=== PATIENT | female | born 1980 ===

== ENCOUNTER 2019-04-16 09:02 | Inpatient (IN) | payer OTHER ==
[~2019-04-16] VITALS: Ht 175.3 cm; Wt 86.2 kg
[2019-04-16] MEDS ORDERED: RIFA550T2 (09:40)
[2019-04-16] MEDS ORDERED: LACT10SY (09:40)
[2019-04-16] MEDS ORDERED: Potassium Chlo10 ME2 (09:41)
[2019-04-16 09:42] LABS: Hematocrit 30.8 % (33.0-51.0); Hemoglobin 11.1 g/dL (11.5-16.0); LYMPHOCYTES ABSOLUTE AUTO 0.77 K/mm3 (0.84-5.20); LYMPHOCYTES PERCENT AUTO 6 % (21-46); MONOCYTES ABSOLUTE AUTO 1.53 K/mm3 (0.16-1.47); MONOCYTES PERCENT AUTO 13 % (4-13); Mean Corpuscular HGB 36.6 pg (26.0-34.0); Mean Corpuscular Volume 102 fL (80-100); RDW Coefficient Variation 15.1 % (11.7-14.2); RDW Standard Deviation 55.5 fL (35.1-46.3); Red Blood Cell Count 3.03 M/mm3 (3.80-5.20); White Blood Cell Count 12.25 K/mm3 (4.00-11.30)
[2019-04-16 09:44] LABS: BASOPHILS ABSOLUTE AUTO 0.02 K/mm3 (0.00-0.23); BASOPHILS PERCENT AUTO 0 % (0-2); EOSINOPHILS ABSOLUTE AUTO 0.07 K/mm3 (0.00-0.68); EOSINOPHILS PERCENT AUTO 1 % (0-6); IMMATURE GRAN PERCENT AUTO 9 % (0-1); NEUTROPHILS ABSOLUTE AUTO 8.76 K/mm3 (1.96-9.15); NEUTROPHILS PERCENT AUTO 71 % (41-73); Platelet Count 50 K/mm3 (150-400)
[2019-04-16 10:02] LABS: Albumin/Globulin Ratio 0.6 (0.8-1.8); Bilirubin, Total 14.1 mg/dL (0.1-1.0); Bun/Creatinine Ratio 10.6 (12.0-20.0); Calcium, Blood 8.4 mg/dL (8.5-10.1); Creatinine, Blood 1.89 mg/dL (0.40-1.00); Potassium, Blood 2.7 mmol/L (3.5-5.5)
[2019-04-16 10:03] LABS: BAND PERCENT MAN 17 % (0-8); BASOPHILS PERCENT MAN 0 % (0-2); EOSINOPHILS ABSOLUTE MAN 0.12 K/mm3 (0.00-0.68); EOSINOPHILS PERCENT MAN 1 % (0-6); LYMPHOCYTES ABSOLUTE MAN 0.49 K/mm3 (0.84-5.20); LYMPHOCYTES PERCENT MAN 4 % (21-46); METAMYELOCYTE ABSOLUTE MAN 0.12 K/mm3 (0.00-0.00); METAMYELOCYTE PERCENT MAN 1 % (0-0); MONOCYTES ABSOLUTE MAN 1.47 K/mm3 (0.16-1.47); MONOCYTES PERCENT MAN 12 % (4-13); NEUTROPHILS ABSOLUTE MAN 10.04 K/mm3 (1.96-9.15); SEG NEUTROPHILS PERCENT MAN 65 % (41-73); TOTAL CELLS COUNTED 100
[2019-04-16 12:16] LABS: International Normalized Ratio 2.84; Prothrombin Time Results 27.4 Sec (9.7-11.5)
[2019-04-16 12:20] LABS: Phosphorus, Blood 2.6 mg/dL (2.5-4.9)
[2019-04-16 12:58] LABS: Base Excess Venous -3.9 mmol/L; Bicarbonate Venous 21.2 mmol/L (24.0-30.0); PCO2 Venous 36.7 mmHg (38-42); PO2 Venous 46.8 mmHg (38-42); pH Blood Venous 7.37 (7.34-7.37)
--- NOTE | 2019-04-16 14:40 | NUR ---
ADMIT NOTE PT REPORT RECEIVED. PT ARRIVED VIA GURNEY ACCOMPANIED BY RN. PT ALERT. SLIDE TO NEW BED WITH SLIDER SHEET AND 4 ASSIST. PT TOELRATED WELL. RECTAL TUBE IN PLACE. DRAINING DARK, BROWN LIQUID. #1 K RIDER INFUSING, IVF INFUSING. PT DENIED PAIN OR DISCOMFORT. SHE ASKED FOR POPCICLE. CONTINUE POT.
[2019-04-16 16:10] LABS: Adenovirus F 40/41 Not Detected (NOT DETECT); Astrovirus Not Detected (NOT DETECT); Campylobacter Sp Not Detected (NOT DETECT); Cryptosporidium Not Detected (NOT DETECT); Cyclospora Cayetanensis Not Detected (NOT DETECT); E. Coli O157 Not Detected (NOT DETECT); Entamoeba Histolytica Not Detected (NOT DETECT); Enteroaggregative E. coli-EAEC Not Detected (NOT DETECT); Enteropathogenic E. coli-EPEC Not Detected (NOT DETECT); Enterotoxigenic E. coli-ETEC Not Detected (NOT DETECT); Giardia Lamblia Not Detected (NOT DETECT); Norovirus GI/GII Not Detected (NOT DETECT); Plesiomonas Shigelloides Not Detected (NOT DETECT); Rotavirus A Not Detected (NOT DETECT); Salmonella Sp Not Detected (NOT DETECT); Sapovirus Not Detected (NOT DETECT); Shiga Toxin-prod E. coli-STEC Not Detected (NOT DETECT); Shigella/Enteroin E. coli-EIEC Not Detected (NOT DETECT); Vibrio Cholerae Not Detected (NOT DETECT); Vibrio Sp Not Detected (NOT DETECT); Yersinia Enterocolitica Not Detected (NOT DETECT)
--- NOTE | 2019-04-16 16:25 | NUR ---
UPDATE CALLED DR SALAS TO ASK ABOUT ANTIBIOTIC AND UPDATE ON BP. REPORTED THAT PT HAD NOT RECEIVED ROCEPHIN IN ER. IT WAS CANCELLED BEFORE GIVING. ORDER RECEIVED FOR ROCEPHIN 2 GRAM IV DAILY. THEN REPORTED BP TREND AND THAT WE WERE FINISHING THE 4TH LITER ON NS. DR SALAS WANTED NS LITER #5 GIVEN BOLUS. REPORTED THAT PT HAS NOT PRODUCED URINE YET. STOOL SAMPLE SENT PER ORDER. CONTINUE POT.
[2019-04-16 16:36] LABS: Hematocrit 27.1 % (33.0-51.0); Hemoglobin 9.6 g/dL (11.5-16.0)
[2019-04-16 16:47] LABS: Albumin, Blood 2.5 g/dL (3.4-5.0); Albumin/Globulin Ratio 0.6 (0.8-1.8); Bilirubin, Total 11.5 mg/dL (0.1-1.0); Bun/Creatinine Ratio 14.4 (12.0-20.0); Calcium, Blood 7.2 mg/dL (8.5-10.1); Creatinine, Blood 1.6 mg/dL (0.40-1.00); Globulin, Blood 4.1 g/dL (2.2-4.0); Potassium, Blood 2.9 mmol/L (3.5-5.5); Total Protein, Blood 6.6 g/dL (6.4-8.2)
--- NOTE | 2019-04-16 17:32 | NUR ---
LABS CALLED TO [facility] TO REPORT LAB RESULTS. CDIFF, POTASSIUM. ORDERS RECEIVED. STILL NO URINE OUT PT. CONTINUE FLUIDS. CONTINUE POT.
[2019-04-17 00:42] LABS: Source, Urine Catheter
[2019-04-17 00:44] LABS: Blood, Urine 5+ (Neg); Glucose Qualitative, Urine Neg (Neg); Ketones, Urine 1+ (Neg); Leukocyte Esterase, Urine 1+ (Neg); Nitrite, Urine Pos (Neg); Protein, Urine 2+ (Neg); Urobilinogen, Urine 1+ (Normal)
[2019-04-17 00:55] LABS: U Amphetamine Screen Not Detected; U Barbituate Screen Not Detected; U Benzodiazapine Screen DETECTED; U Buprenorphine Screen Not Detected; U Cannabinoids Screen Not Detected; U Cocaine Screen Not Detected; U Methadone Screen Not Detected; U Methamphetamine Screen Not Detected; U Opiates Screen Not Detected; U Oxycodone Screen Not Detected; U Phencyclidine Screen Not Detected; U Propoxyphene Screen Not Detected
[2019-04-17 00:55] LABS: Appearance, Urine Hazy (Clear); Bilirubin, Urine 2+ (Neg); Color, Urine Amber (P-Yellow)
[2019-04-17 00:56] LABS: Bacteria Mod /hpf; Red Blood Cells, Urine 50-100 /hpf (0-2); Squamous Epithelial Cells Few /hpf (Few)
[2019-04-17 04:01] LABS: Hemoglobin 9.4 g/dL (11.5-16.0); Mean Corpuscular HGB 36.7 pg (26.0-34.0); Mean Corpuscular HGB Conc 34.8 g/dL (31.5-36.5); Mean Platelet Volume 10.6 fL (9.1-12.4); RDW Coefficient Variation 14.9 % (11.7-14.2); RDW Standard Deviation 58.3 fL (35.1-46.3); Red Blood Cell Count 2.56 M/mm3 (3.80-5.20); White Blood Cell Count 9.38 K/mm3 (4.00-11.30)
[2019-04-17 04:03] LABS: Mean Corpuscular Volume 106 fL (80-100)
[2019-04-17 04:04] LABS: Platelet Count 42 K/mm3 (150-400)
[2019-04-17 04:17] LABS: Albumin, Blood 2.5 g/dL (3.4-5.0); Albumin/Globulin Ratio 0.6 (0.8-1.8); Bilirubin, Total 9.8 mg/dL (0.1-1.0); Bun/Creatinine Ratio 20.9 (12.0-20.0); Calcium, Blood 7.3 mg/dL (8.5-10.1); Creatinine, Blood 1.15 mg/dL (0.40-1.00); Globulin, Blood 4.4 g/dL (2.2-4.0); Magnesium, Blood 1.5 mg/dL (1.6-2.4); Potassium, Blood 2.9 mmol/L (3.5-5.5); Total Protein, Blood 6.9 g/dL (6.4-8.2)
[2019-04-17 04:34] LABS: BAND PERCENT MAN 29 % (0-8); BASOPHILS PERCENT MAN 0 % (0-2); EOSINOPHILS ABSOLUTE MAN 0.46 K/mm3 (0.00-0.68); EOSINOPHILS PERCENT MAN 5 % (0-6); LYMPHOCYTES ABSOLUTE MAN 0.75 K/mm3 (0.84-5.20); LYMPHOCYTES PERCENT MAN 8 % (21-46); METAMYELOCYTE ABSOLUTE MAN 0.09 K/mm3 (0.00-0.00); METAMYELOCYTE PERCENT MAN 1 % (0-0); MONOCYTES ABSOLUTE MAN 0.93 K/mm3 (0.16-1.47); MONOCYTES PERCENT MAN 10 % (4-13); MYELOCYTE ABSOLUTE MAN 0.09 K/mm3 (0.00-0.00); MYELOCYTE PERCENT MAN 1 % (0-0); NEUTROPHILS ABSOLUTE MAN 7.03 K/mm3 (1.96-9.15); SEG NEUTROPHILS PERCENT MAN 46 % (41-73); TOTAL CELLS COUNTED 100
--- NOTE | 2019-04-17 07:32 | NUR ---
END OF SHIFT SUMMARY PT HAS BEEN ALERT AND ORIENTED T/O SHIFT, RESPONDING APPROPRIATELY. HAS BEEN INDEPENDENT TO BSC, STABLE GAIT. PT STARTED WITH RECTAL TUBE THIS SHIFT, THIS WAS ACCIDENTALLY PULLED OUT ON BSC, THIS WAS NOT REINSERTED PER PT REQUEST, PT HAS BEEN ABLE TO MAKE IT TO BSC WITH NO EVENTS. POST BOLUS OF NS, BP'S HAVE REAINED ABOVE 100 SYSTOLICALLY. FLUIDS REMAIN INFUSING @100MLS/HR NOW. UPON RECTAL TUBE EXUBATION, RED BLOOD IN BSC, THOUGHT TO HAVE BEEN OF GI ORIGIN R/T C DIFF. IT WAS LATER DISCOVERED THAT THIS WAS OF MENSES ORIGIN. TAMPONS PROVIDED TO PT. PT HAS USED MULTIPLE TAMPONS AND PULLED THE OLD ONES OUT. PT HAS TOLERATED LARGE AMOUNTS PO WATER AND A FEW POPSICLES. PT HAS SOME ABD PAIN, MED ORDER RECEIVED FROM PAMELA OSMAN. PT'S BM OUTPUT HAS DECREASED T/O THE NIGHT, PT HAD RECEIVED LACTULOSE PRE HOSPITAL BUT HAS NOT RECEIVED ANY SINCE ADMIT. PT FEBRILE AT TIMES, PROVIDED COOL RAGS, DUE TO KIDNEY/LIVER FUNCTION, TYLENOL NOT ABLE TO BE GIVEN. CIWAS REMAIN 0 - 1. PT HAS COMMUNICATED NEEDS TO THIS RN AND HAS USED CALL LIGHT APPROPRIATELY. REPORT GIVEN TO ONCOMING RN.
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
[2019-04-18 03:27] LABS: BASOPHILS ABSOLUTE AUTO 0.07 K/mm3 (0.00-0.23); BASOPHILS PERCENT AUTO 1 % (0-2); Hematocrit 25.5 % (33.0-51.0); Mean Corpuscular HGB Conc 35.3 g/dL (31.5-36.5); Mean Corpuscular Volume 105 fL (80-100); RDW Coefficient Variation 14.7 % (11.7-14.2); RDW Standard Deviation 57.2 fL (35.1-46.3); Red Blood Cell Count 2.43 M/mm3 (3.80-5.20)
[2019-04-18 03:28] LABS: EOSINOPHILS ABSOLUTE AUTO 0.38 K/mm3 (0.00-0.68); EOSINOPHILS PERCENT AUTO 4 % (0-6); IMMATURE GRAN ABSOLUTE AUTO 0.08 K/mm3 (0.00-0.10); IMMATURE GRAN PERCENT AUTO 1 % (0-1); LYMPHOCYTES ABSOLUTE AUTO 1.37 K/mm3 (0.84-5.20); LYMPHOCYTES PERCENT AUTO 16 % (21-46); MONOCYTES ABSOLUTE AUTO 0.86 K/mm3 (0.16-1.47); MONOCYTES PERCENT AUTO 10 % (4-13); NEUTROPHILS ABSOLUTE AUTO 5.94 K/mm3 (1.96-9.15); NEUTROPHILS PERCENT AUTO 68 % (41-73)
[2019-04-18 03:29] LABS: Platelet Count 47 K/mm3 (150-400)
[2019-04-18 03:38] LABS: International Normalized Ratio 2.05; Prothrombin Time Results 20.4 Sec (9.7-11.5)
[2019-04-18 03:44] LABS: Alanine Aminotransfer (ALT/SGP 28 U/L (12-78); Albumin, Blood 2.4 g/dL (3.4-5.0); Albumin/Globulin Ratio 0.6 (0.8-1.8); Alk Phos 146 U/L (50-136); Anion Gap 10 mmol/L (6-16); Aspartate Aminotrans (AST/SGOT 58 U/L (12-37); Blood Urea Nitrogen 10 mg/dL (8-24); Bun/Creatinine Ratio 13.7 (12.0-20.0); CO2, Blood 19 mmol/L (21-32); Calcium, Blood 7.7 mg/dL (8.5-10.1); Chloride, Blood 107 mmol/L (98-108); Creatinine, Blood 0.73 mg/dL (0.40-1.00); Globulin, Blood 4.3 g/dL (2.2-4.0); Glomerular Filtration Rate >60 (60-); Glucose, Blood 133 mg/dL (70-99); Magnesium, Blood 1.4 mg/dL (1.6-2.4); Potassium, Blood 2.8 mmol/L (3.5-5.5); Sodium, Blood 136 mmol/L (136-145); Total Protein, Blood 6.7 g/dL (6.4-8.2)
--- NOTE | 2019-04-18 06:38 | NUR ---
no s/sx of withdrawls, a+o, cooperative with staff, call light in reach, dressing applied to coccyx r/fall prior to being admitted, informed dr of low plt cnt and potassium level, entered resulting orders and treated as prescribed, pt showered, ns infusing at 100 with no s/sx of infection or infiltration, will continue to monitor and treat until bsr completed with day staff and pt, temp remained elevated but less than 100, possibly related to temp of room.
--- NOTE | 2019-04-18 10:42 | NUR ---
NOTE PT AWAKE AND ALERT. SHE HAS SEEN MENTAL HEALTH PROGRAM SPECIALIST AND TALKED ABOUT ALCOHOL REHAB. PT CONCERNED ABOUT NOT HAVING SELF CONTROL AND WHEN WE DISCHARGE HER SHE WILL WALK OUT AND GO RIGHT BACK TO [facility]. SHE ACCEPTED MY PRAKASH TO CONTACT AA STAFF TO ARRANGE A VISIT HERE. CAONTACTED JOLANTA MENESES AND REQUESTED A VISIT FOR PT. CONTINUE POT.
--- NOTE | 2019-04-18 15:09 | NUR ---
NOTE PT ALERT. SR. AMBULATED IN THE HALLWAY WITH SBA AND GAIT BELT. TOLERATED WELL. GAIT STEADY. VSS. CONTINUED LOOSE STOOL PER BSC. PT EATING REGULAR FOOD. SHE DENIES ABD. CRAMPING OR BLOATING. ABD. U/S DONE. DR SALAS CAME TO SEE PT. NEW ORDERS RECEIVED. PT HAS DENIED CONTINUED MENSTRAL FLOW. SHE HAS NOT USED ANY OF THE PADS SUPPLIED TO HER THIS MORNING. NO BLOODY TINGE TO URINE IN BSC. MEDICATED WITH FENTAYL X2 FOR PELVIC/CRAMPING DISCOMFORT CONTINUE POT.
--- NOTE | 2019-04-18 15:12 | NUR ---
COMPASS/ADAPT RENA POOL, CALLED TO ENQUIRE ABOUT PT. HE CONFIRMED THAT SHE NEEEDS TO COMPLETE THE ANTIBIOTIC TREATMENT BEFORE RETURNING FOR ALCOHOL TREATMENT. CONTINUE POT.
--- NOTE | 2019-04-18 17:00 | NUR ---
Spiritual Care inital note: Asked by RN to speak to pt about recovery from ETOH. She has been in several ETOH in-patient rehabs. She admits to leaving before treatment complete. She verbalizes that she wants to quit drinking. She also admits that she knows "this will kill me if I don't." However, she is not interested in following up with 12-step program/counseling after rehab complete. Educated Peace that most alcoholics need some form of continued support to live a sober life. She is manly worried about finding a place to live as she cannot return to family. Advised that discharge planning may provide some options.
[2019-04-19 03:52] LABS: BASOPHILS ABSOLUTE AUTO 0.06 K/mm3 (0.00-0.23); BASOPHILS PERCENT AUTO 1 % (0-2); Hematocrit 24.3 % (33.0-51.0); Hemoglobin 8.6 g/dL (11.5-16.0); LYMPHOCYTES PERCENT AUTO 22 % (21-46); MONOCYTES ABSOLUTE AUTO 1.07 K/mm3 (0.16-1.47); MONOCYTES PERCENT AUTO 15 % (4-13); Mean Corpuscular HGB 37.1 pg (26.0-34.0); Mean Corpuscular HGB Conc 35.4 g/dL (31.5-36.5); Mean Corpuscular Volume 105 fL (80-100); Mean Platelet Volume 10.5 fL (9.1-12.4); NRBC ABSOLUTE 0.02 K/mm3 (0.00-0.02); NRBC Auto 0.3 /100 WBC (0.0-0.2); RDW Coefficient Variation 14.5 % (11.7-14.2); RDW Standard Deviation 54.9 fL (35.1-46.3); Red Blood Cell Count 2.32 M/mm3 (3.80-5.20); White Blood Cell Count 6.97 K/mm3 (4.00-11.30)
[2019-04-19 03:54] LABS: EOSINOPHILS ABSOLUTE AUTO 0.44 K/mm3 (0.00-0.68); EOSINOPHILS PERCENT AUTO 6 % (0-6); IMMATURE GRAN ABSOLUTE AUTO 0.09 K/mm3 (0.00-0.10); IMMATURE GRAN PERCENT AUTO 1 % (0-1); NEUTROPHILS ABSOLUTE AUTO 3.81 K/mm3 (1.96-9.15); NEUTROPHILS PERCENT AUTO 55 % (41-73); Platelet Count 48 K/mm3 (150-400)
[2019-04-19 04:08] LABS: Alanine Aminotransfer (ALT/SGP 28 U/L (12-78); Albumin, Blood 2.2 g/dL (3.4-5.0); Albumin/Globulin Ratio 0.5 (0.8-1.8); Alk Phos 153 U/L (50-136); Anion Gap 9 mmol/L (6-16); Aspartate Aminotrans (AST/SGOT 58 U/L (12-37); Bilirubin, Total 5.3 mg/dL (0.1-1.0); Blood Urea Nitrogen 6 mg/dL (8-24); Bun/Creatinine Ratio 8.9 (12.0-20.0); CO2, Blood 21 mmol/L (21-32); Calcium, Blood 7.6 mg/dL (8.5-10.1); Chloride, Blood 106 mmol/L (98-108); Creatinine, Blood 0.67 mg/dL (0.40-1.00); Globulin, Blood 4.1 g/dL (2.2-4.0); Glomerular Filtration Rate >60 (60-); Glucose, Blood 92 mg/dL (70-99); Magnesium, Blood 1.2 mg/dL (1.6-2.4); Potassium, Blood 3.3 mmol/L (3.5-5.5); Sodium, Blood 136 mmol/L (136-145); Total Protein, Blood 6.3 g/dL (6.4-8.2)
[2019-04-19 04:13] LABS: BAND PERCENT MAN 3 % (0-8); BASOPHILS PERCENT MAN 0 % (0-2); EOSINOPHILS ABSOLUTE MAN 0.34 K/mm3 (0.00-0.68); EOSINOPHILS PERCENT MAN 5 % (0-6); LYMPHOCYTES ABSOLUTE MAN 0.83 K/mm3 (0.84-5.20); LYMPHOCYTES PERCENT MAN 12 % (21-46); MONOCYTES ABSOLUTE MAN 0.62 K/mm3 (0.16-1.47); MONOCYTES PERCENT MAN 9 % (4-13); NEUTROPHILS ABSOLUTE MAN 5.15 K/mm3 (1.96-9.15); SEG NEUTROPHILS PERCENT MAN 71 % (41-73); TOTAL CELLS COUNTED 100
--- NOTE | 2019-04-19 05:06 | NUR ---
clv noted, discussed with cn, value was better than yesterdays, so did not inform dr via phone
--- NOTE | 2019-04-19 07:23 | NUR ---
a+o, up on own in room, call light in reach, pain medication minimally effective, ns infusing with no s/sx of infection noted at site, thought someone laughed during report r/bruising, assured her that it was someone out side of the room who laughed, ciwa 0, bsr provided to pt and day staff
--- NOTE | 2019-04-19 19:25 | NUR ---
SHIFT SUMMARY PT A&Ox4. ANXIOUS AT TIMES. COOPERATIVE WITH CARE. PT RESTING IN BED DURING SHIFT. UP IND IN ROOM AND WALKING IN HALLS SEVERAL TIMES PER DAY. PT REPORTS ABD PAIN, MEDCIATED x2 WITH FENTNYL WITH POSITIVE RESULTS. PT DENIES SOB AND NAUSEA T/O SHIFT. PT RECEIVED POTASSIUM AND MAGNESIUM REPLACEMENTS DURING SHIFT. RECEIVING PO VANCO AND PROBIOTICS. VSS. NO OTHER ACUTE CHANGES NOTED DURING SHIFT. WILL CONTINUE TO MONITOR UNTIL REPORT GIVEN TO ONCOMING RN.
[2019-04-20 04:53] LABS: BASOPHILS ABSOLUTE AUTO 0.04 K/mm3 (0.00-0.23); BASOPHILS PERCENT AUTO 1 % (0-2); Hematocrit 19.2 % (33.0-51.0); LYMPHOCYTES ABSOLUTE AUTO 1.97 K/mm3 (0.84-5.20); LYMPHOCYTES PERCENT AUTO 24 % (21-46); MONOCYTES ABSOLUTE AUTO 1.56 K/mm3 (0.16-1.47); MONOCYTES PERCENT AUTO 19 % (4-13); Mean Corpuscular HGB 38.3 pg (26.0-34.0); Mean Corpuscular HGB Conc 36.5 g/dL (31.5-36.5); Mean Corpuscular Volume 105 fL (80-100); Mean Platelet Volume 10.9 fL (9.1-12.4); Platelet Count 61 K/mm3 (150-400); RDW Coefficient Variation 14.4 % (11.7-14.2); RDW Standard Deviation 54.9 fL (35.1-46.3); Red Blood Cell Count 1.83 M/mm3 (3.80-5.20); White Blood Cell Count 8.22 K/mm3 (4.00-11.30)
[2019-04-20 04:56] LABS: EOSINOPHILS ABSOLUTE AUTO 0.36 K/mm3 (0.00-0.68); EOSINOPHILS PERCENT AUTO 4 % (0-6); IMMATURE GRAN ABSOLUTE AUTO 0.16 K/mm3 (0.00-0.10); IMMATURE GRAN PERCENT AUTO 2 % (0-1); NEUTROPHILS ABSOLUTE AUTO 4.13 K/mm3 (1.96-9.15); NEUTROPHILS PERCENT AUTO 50 % (41-73)
[2019-04-20 05:10] LABS: Alanine Aminotransfer (ALT/SGP 26 U/L (12-78); Albumin, Blood 2.3 g/dL (3.4-5.0); Albumin/Globulin Ratio 0.5 (0.8-1.8); Alk Phos 135 U/L (50-136); Anion Gap 7 mmol/L (6-16); Aspartate Aminotrans (AST/SGOT 57 U/L (12-37); Bilirubin, Total 5.6 mg/dL (0.1-1.0); Blood Urea Nitrogen 6 mg/dL (8-24); Bun/Creatinine Ratio 9.6 (12.0-20.0); CO2, Blood 24 mmol/L (21-32); Calcium, Blood 7.9 mg/dL (8.5-10.1); Chloride, Blood 105 mmol/L (98-108); Creatinine, Blood 0.63 mg/dL (0.40-1.00); Globulin, Blood 4.3 g/dL (2.2-4.0); Glomerular Filtration Rate >60 (60-); Glucose, Blood 78 mg/dL (70-99); Magnesium, Blood 1.4 mg/dL (1.6-2.4); Potassium, Blood 3.6 mmol/L (3.5-5.5); Sodium, Blood 136 mmol/L (136-145); Total Protein, Blood 6.6 g/dL (6.4-8.2)
--- NOTE | 2019-04-20 06:14 | NUR ---
a+o, changed dressing for powerglide, tolerated procedure well, caps changed, call light in reach, saline locked rm air, only requested pain mediation twice, legs elevated, no s/sx of withdrawl, will continue to monitor and treat until bsr shared with day staff and pt
[2019-04-20 09:40] LABS: IMMATURE RETIC FRACTION 6.7 % (2.3-16.0); RETIC HGB EQUIVALENT 36.8 pg (28.20-36.60); RETICULOCYTE ABSOLUTE 0.0608 M/mm3 (0.0200-0.1100); RETICULOCYTE COUNT PERCENT 3.27 % (0.50-2.50)
--- NOTE | 2019-04-20 15:10 | NUR ---
PT TRANSFERING TO ROOM 310. PT A&Ox4. ANXIOUS AT TIMES. CALM AND COOPERATIVE WITH CARE. PT IND IN ROOM. PT REPROT ABD CRAMPING, MEDCIATED x1 WITH ULTRAM WITH POSITIVE RESULTS. PT DENIES SOB AND NAUSEA T/O SHIFT. PT RECEIVED IV MAGNESIUM. 1 UNIT PRBC, APPEARS TO HAVE TOLERATED WELL. VSS. NO OTHER ACUTE CHANGES NOTED. REPORT GIVEN TO AUDREY VOGEL ASSUMING CARE OF PT. PT LEFT ROOM ON FOOT WITH BELONGINGS AND EMELINA LYNNE TO ROOM 310.
--- NOTE | 2019-04-20 15:41 | NUR ---
PT ARRIVED TO THE UNIT WALKING. ORIENTATED TO ROOM. CALL LIGHT WITHIN REACH.
--- NOTE | 2019-04-21 04:35 | NUR ---
SHIFT SUMMARY: 39 Y/O FEMALE RESTED COMFORTABLY ALL SHIFT, DENIES PAIN OR NAUSEA, CIWA SCORE ZERO, EAGER TO POSSIBLE PLACEMENT TO REHAB UNIT FOR ETOH ABUSE, BED LOW POSITION WITH CALL LIGHT AT SIDE.
[2019-04-21 05:04] LABS: Hematocrit 26.3 % (33.0-51.0); Hemoglobin 9.2 g/dL (11.5-16.0)
[2019-04-21 05:35] LABS: Anion Gap 5 mmol/L (6-16); Blood Urea Nitrogen 5 mg/dL (8-24); Bun/Creatinine Ratio 8.9 (12.0-20.0); CO2, Blood 26 mmol/L (21-32); Calcium, Blood 8.2 mg/dL (8.5-10.1); Chloride, Blood 105 mmol/L (98-108); Creatinine, Blood 0.56 mg/dL (0.40-1.00); Glomerular Filtration Rate >60 (60-); Glucose, Blood 93 mg/dL (70-99); Potassium, Blood 3.6 mmol/L (3.5-5.5); Sodium, Blood 136 mmol/L (136-145)
--- NOTE | 2019-04-21 18:04 | NUR ---
PATIENT CONTINUES TO HAVE LOOSE STOOL AND ABDOMENAL PAIN. PAIN MEDS GIVEN PER EMAR. PATIENT IS ALERT AND ABLE TO EXPRESS ANY NEEDS. SHE IS WALKING THE HALLS THROUGHOUT THE SHIFT. PATIENT HAS 2+PITTING EDEMA TO BILAT LOWER EXTREMS. CALL LIGHT WITHIN REACH.
--- NOTE | 2019-04-22 04:22 | NUR ---
SHIFT SUMMARY: 39 Y/O FEMALE RESTED COMFORTABLY ALL SHIFT, DENIES PAIN OR NAUSEA, HAPPY AND COOPERATIVE, SCLERA JAUNDICED, CIWA=0, BED LOW POSITION, CALL LIGHT AT SIDE.
[2019-04-22] MEDS ORDERED: POLY500 PO (13:37)
[2019-04-22] MEDS ORDERED: VANCOCIN HCL250 MG PO (13:40)
--- NOTE | 2019-04-22 15:38 | NUR ---
1500 PATIENT TO DISCHARGE TO HOME . MEDS FA[facility]ED TO [facility] . PATIENT HAS NO PCP SHE IS NOT FROM THE [place] SO NO FOLLOW UP WAS SCHEDULED BUT SHE WAS ADVISED TO FOLLOW UP WITH HER DOCTOR. IV REMOVED NO SS OF INFECTION NOTED. PATIENT WAS TAKEN BY TAXI . SHE PACKED HER OWN BELONGINGS AND WAS ABLE TO WALK OUT ON HER OWN.
== END 2019-04-22 15:36 | disposition home or self-care (01) | DRG 872 ==
LOC: ER 09:02 → PCU 11:46 → MEDS 11:46 → PCU 13:25 → MEDS 04-20 15:00 → ENPENDDIS 04-22 09:20 → EDPENDDIS 04-22 09:20 → MEDS 04-22 15:36
PROVIDERS: Hospitalist; Internal Medicine; Nurse Practitioner Acute Care; Physician Assistant; ADMIT Family Medicine
PROC: 30233N1 Transfusion of Nonautologous Red Blood Cells into Peripheral Vein, Percutaneous Approach (ICD-10-PCS; principal; 2019-04-20)
DX: A41.9 Sepsis, unspecified organism (principal); N17.9 Acute kidney failure, unspecified; A04.72 Enterocolitis due to Clostridium difficile, not specified as recurrent; N39.0 Urinary tract infection, site not specified; R65.20 Severe sepsis without septic shock; E86.0 Dehydration; E87.6 Hypokalemia; D69.6 Thrombocytopenia, unspecified; E83.42 Hypomagnesemia; D64.9 Anemia, unspecified; I10 Essential (primary) hypertension; F32.9 Major depressive disorder, single episode, unspecified; F43.10 Post-traumatic stress disorder, unspecified; K70.30 Alcoholic cirrhosis of liver without ascites; F41.0 Panic disorder [episodic paroxysmal anxiety]
CPT/HCPCS: 0097U; 36415; 36430; 71045; 76705; 80048; 80053; 81001; 81025; 82140; 82272; 82550; 82728; 82803; 83540; 83550; 83605; 83690; 83735; 84100; 85014; 85018; 85025; 85045; 85610; 86850; 86900; 86901; 86923; 87040; 87077; 87086; 87186; 87324; 93005; 93010; 96361; 96365; 96366; 96375; 97116; 97162; 97165; 97530; 99285-25; C1751; C9113; J0696; J2405; J3010; J3370; J3475; J3480; J7030; J7050; P9016

== ENCOUNTER 2019-04-29 09:29 | Inpatient (IN) | payer OTHER ==
[~2019-04-29] VITALS: Ht 177.8 cm; Wt 81.7 kg
[~2019-04-29 09:29] MED LIST: POLY500 PO
[2019-04-29 10:06] LABS: Alanine Aminotransfer (ALT/SGP 49 U/L (12-78); Albumin, Blood 2.8 g/dL (3.4-5.0); Albumin/Globulin Ratio 0.5 (0.8-1.8); Alk Phos 125 U/L (50-136); Anion Gap 10 mmol/L (6-16); Aspartate Aminotrans (AST/SGOT 204 U/L (12-37); BASOPHILS ABSOLUTE AUTO 0.11 K/mm3 (0.00-0.23); BASOPHILS PERCENT AUTO 1 % (0-2); Bilirubin, Total 10.8 mg/dL (0.1-1.0); Blood Urea Nitrogen 8 mg/dL (8-24); Bun/Creatinine Ratio 14.9 (12.0-20.0); CO2, Blood 25 mmol/L (21-32); Calcium, Blood 8.2 mg/dL (8.5-10.1); Chloride, Blood 104 mmol/L (98-108); Creatinine, Blood 0.54 mg/dL (0.40-1.00); EOSINOPHILS ABSOLUTE AUTO 0.04 K/mm3 (0.00-0.68); EOSINOPHILS PERCENT AUTO 0 % (0-6); Globulin, Blood 5.8 g/dL (2.2-4.0); Glomerular Filtration Rate >60 (60-); Glucose, Blood 119 mg/dL (70-99); Hematocrit 29.8 % (33.0-51.0); Hemoglobin 10.2 g/dL (11.5-16.0); IMMATURE GRAN ABSOLUTE AUTO 0.09 K/mm3 (0.00-0.10); IMMATURE GRAN PERCENT AUTO 1 % (0-1); LYMPHOCYTES ABSOLUTE AUTO 0.93 K/mm3 (0.84-5.20); LYMPHOCYTES PERCENT AUTO 8 % (21-46); MONOCYTES ABSOLUTE AUTO 0.59 K/mm3 (0.16-1.47); MONOCYTES PERCENT AUTO 5 % (4-13); Mean Corpuscular HGB 36.2 pg (26.0-34.0); Mean Corpuscular HGB Conc 34.2 g/dL (31.5-36.5); Mean Corpuscular Volume 106 fL (80-100); Mean Platelet Volume 10.1 fL (9.1-12.4); NEUTROPHILS ABSOLUTE AUTO 10.05 K/mm3 (1.96-9.15); NEUTROPHILS PERCENT AUTO 85 % (41-73); Platelet Count 65 K/mm3 (150-400); Potassium, Blood 3.6 mmol/L (3.5-5.5); RDW Coefficient Variation 15.4 % (11.7-14.2); RDW Standard Deviation 60.4 fL (35.1-46.3); Red Blood Cell Count 2.82 M/mm3 (3.80-5.20); Sodium, Blood 139 mmol/L (136-145); Total Protein, Blood 8.6 g/dL (6.4-8.2); White Blood Cell Count 11.81 K/mm3 (4.00-11.30)
[2019-04-29 12:29] LABS: Campylobacter Sp Not Detected (NOT DETECT)
[2019-04-29 12:30] LABS: Adenovirus F 40/41 Not Detected (NOT DETECT); Astrovirus Not Detected (NOT DETECT); Cryptosporidium Not Detected (NOT DETECT); Cyclospora Cayetanensis Not Detected (NOT DETECT); E. Coli O157 Not Detected (NOT DETECT); Entamoeba Histolytica Not Detected (NOT DETECT); Enteroaggregative E. coli-EAEC Not Detected (NOT DETECT); Enteropathogenic E. coli-EPEC Not Detected (NOT DETECT); Enterotoxigenic E. coli-ETEC Not Detected (NOT DETECT); Giardia Lamblia Not Detected (NOT DETECT); Norovirus GI/GII Not Detected (NOT DETECT); Plesiomonas Shigelloides Not Detected (NOT DETECT); Rotavirus A Not Detected (NOT DETECT); Salmonella Sp Not Detected (NOT DETECT); Sapovirus Not Detected (NOT DETECT); Shiga Toxin-prod E. coli-STEC Not Detected (NOT DETECT); Shigella/Enteroin E. coli-EIEC Not Detected (NOT DETECT); Vibrio Cholerae Not Detected (NOT DETECT); Vibrio Sp Not Detected (NOT DETECT); Yersinia Enterocolitica Not Detected (NOT DETECT)
[2019-04-29 13:56] LABS: Blood, Urine 5+ (Neg); Glucose Qualitative, Urine Neg (Neg); Ketones, Urine 1+ (Neg); Leukocyte Esterase, Urine 2+ (Neg); Nitrite, Urine Neg (Neg); Protein, Urine 3+ (Neg); Specific Gravity, Urine 1.015 (1.003-1.022); Urobilinogen, Urine 2+ (Normal)
[2019-04-29] MEDS ORDERED: LACT10SY PO (14:00)
[2019-04-29] MEDS ORDERED: RIFA550T2 PO (14:04)
[2019-04-29] MEDS ORDERED: VANCOCIN HCL125 MG PO (14:05)
[2019-04-29] MEDS ORDERED: Potassium Chlo10 ME2 PO (14:05)
[2019-04-29] MEDS ORDERED: B-1100 MG PO (14:05)
[2019-04-29] MEDS ORDERED: FAMO20 PO (14:06)
[2019-04-29] MEDS ORDERED: THERA1 EACH PO (14:06)
[2019-04-29] MEDS ORDERED: FOLIC ACID PO (14:06)
[2019-04-29] MEDS ORDERED: FLUO10 PO (14:07)
[2019-04-29] MEDS ORDERED: ONDA4ODT SL (14:07)
[2019-04-29] MEDS ORDERED: GABA100 PO (14:09)
[2019-04-29 14:22] LABS: Appearance, Urine Cloudy (Clear); Bilirubin, Urine 2+ (Neg); Color, Urine Orange (P-Yellow)
[2019-04-29 14:25] LABS: Bacteria Many /hpf; Squamous Epithelial Cells Many /hpf (Few)
[2019-04-29 14:26] LABS: Amorphous Light (0-Heavy)
--- NOTE | 2019-04-29 19:00 | NUR ---
SHIFT SUMMARY ED ADMIT THIS EVENING. PATIENT SETTLED IN TO ROOM. PATIENT MEDICATED X 1 FOR PAIN. MEDICATED X1 FOR WITHDRAWAL SYMPTOMS, CIWA OF 5. MEDICATED X1 FOR FEVER. FEVER. PATIENT UP SBA TO BSC. DENIES SHORTNESS OF BREATH. REPORTS MILD NAUSEA. CALL LIGHT IN REACH.
[2019-04-30 05:01] LABS: Hematocrit 27.6 % (33.0-51.0); Hemoglobin 9.5 g/dL (11.5-16.0); Mean Corpuscular HGB 36.4 pg (26.0-34.0); Mean Corpuscular HGB Conc 34.4 g/dL (31.5-36.5); Mean Corpuscular Volume 106 fL (80-100); Mean Platelet Volume 10.6 fL (9.1-12.4); RDW Coefficient Variation 15.5 % (11.7-14.2); RDW Standard Deviation 59.3 fL (35.1-46.3); Red Blood Cell Count 2.61 M/mm3 (3.80-5.20); White Blood Cell Count 12.98 K/mm3 (4.00-11.30)
--- NOTE | 2019-04-30 05:02 | NUR ---
SHIFT SUMMARY PATIENT AWAKE THROUGHOUT THE PROPERTY FIELD ADJUSTER R/T NAUSEA/VOMITING, TREMORS, AND ANXIETY. PATIENT HAD DIFFICULTY CONTROLLING HER BOWELS AND HAD MULTIPLE BOUTS OF INCONTINENCE. CIWA BETWEEN 9-12. TREATED PATIENT WITH PRESCRIBED LIBRIUM AND ATIVAN (SEE EMAR). PATIENT UP AD SHIRAZ TO BSC. PATIENT SINUS TACH ON TELEMETRY AND HAD ONE INTANT OF A HR OF 152 ON TELE. ASYMPTOMATIC AT TIME. HEART RATE NOW ST 108. WILL CONTINUE TO MONITOR.
[2019-04-30 05:09] LABS: Platelet Count 45 K/mm3 (150-400)
[2019-04-30 05:46] LABS: BAND PERCENT MAN 14 % (0-8); BASOPHILS ABSOLUTE MAN 0.12 K/mm3 (0.00-0.23); BASOPHILS PERCENT MAN 1 % (0-2); EOSINOPHILS PERCENT MAN 0 % (0-6); LYMPHOCYTES ABSOLUTE MAN 0.38 K/mm3 (0.84-5.20); LYMPHOCYTES PERCENT MAN 3 % (21-46); MONOCYTES ABSOLUTE MAN 0.25 K/mm3 (0.16-1.47); MONOCYTES PERCENT MAN 2 % (4-13); SEG NEUTROPHILS PERCENT MAN 80 % (41-73); TOTAL CELLS COUNTED 100
[2019-04-30 06:00] LABS: Anion Gap 7 mmol/L (6-16); Blood Urea Nitrogen 14 mg/dL (8-24); Bun/Creatinine Ratio 22.1 (12.0-20.0); CO2, Blood 26 mmol/L (21-32); Calcium, Blood 8.3 mg/dL (8.5-10.1); Chloride, Blood 103 mmol/L (98-108); Creatinine, Blood 0.63 mg/dL (0.40-1.00); Glomerular Filtration Rate >60 (60-); Glucose, Blood 114 mg/dL (70-99); Potassium, Blood 3.4 mmol/L (3.5-5.5); Sodium, Blood 136 mmol/L (136-145)
--- NOTE | 2019-04-30 18:12 | NUR ---
PT. LYING QUIETLY. STILL HAVING NUMEROUS LOOSE ODIFEROUS STOOLS. APPETITE ISN'T VERY GOOD RELATED PATIENT. CIWAS ARE STILL LOW AT THIS TIME. WD'S HAVE NOT SEEMED TO PRESENTED THEMSELVES YET. PT. BROTHER CALLED TODAY ASKING ABOUT HER.
[2019-05-01 01:01] LABS: Albumin, Blood 2.2 g/dL (3.4-5.0); Anion Gap 7 mmol/L (6-16); Blood Urea Nitrogen 9 mg/dL (8-24); Bun/Creatinine Ratio 13.9 (12.0-20.0); CO2, Blood 26 mmol/L (21-32); Calcium, Blood 7.6 mg/dL (8.5-10.1); Chloride, Blood 104 mmol/L (98-108); Creatinine, Blood 0.65 mg/dL (0.40-1.00); Glomerular Filtration Rate >60 (60-); Glucose, Blood 104 mg/dL (70-99); Phosphorus, Blood 1.4 mg/dL (2.5-4.9); Sodium, Blood 137 mmol/L (136-145)
[2019-05-01 01:47] LABS: BASOPHILS ABSOLUTE AUTO 0.04 K/mm3 (0.00-0.23); BASOPHILS PERCENT AUTO 1 % (0-2); EOSINOPHILS ABSOLUTE AUTO 0.33 K/mm3 (0.00-0.68); EOSINOPHILS PERCENT AUTO 4 % (0-6); Hematocrit 23.2 % (33.0-51.0); Mean Corpuscular HGB 36.2 pg (26.0-34.0); Mean Corpuscular HGB Conc 34.5 g/dL (31.5-36.5); Mean Corpuscular Volume 105 fL (80-100); Mean Platelet Volume 10.4 fL (9.1-12.4); RDW Coefficient Variation 15.6 % (11.7-14.2); RDW Standard Deviation 59.2 fL (35.1-46.3); Red Blood Cell Count 2.21 M/mm3 (3.80-5.20); White Blood Cell Count 7.59 K/mm3 (4.00-11.30)
[2019-05-01 01:50] LABS: IMMATURE GRAN ABSOLUTE AUTO 0.04 K/mm3 (0.00-0.10); IMMATURE GRAN PERCENT AUTO 1 % (0-1); LYMPHOCYTES ABSOLUTE AUTO 1.19 K/mm3 (0.84-5.20); LYMPHOCYTES PERCENT AUTO 16 % (21-46); MONOCYTES ABSOLUTE AUTO 0.44 K/mm3 (0.16-1.47); MONOCYTES PERCENT AUTO 6 % (4-13); NEUTROPHILS ABSOLUTE AUTO 5.55 K/mm3 (1.96-9.15); NEUTROPHILS PERCENT AUTO 73 % (41-73)
[2019-05-01 01:51] LABS: Platelet Count 39 K/mm3 (150-400)
--- NOTE | 2019-05-01 01:57 | NUR ---
PHYSICIAN CONTACT NOTIFIED WEATHERIZATION DIRECTOR PHYSICIAN, DR MAYER, OF CRITICAL LAB VALUE AT 0149. TOLD PHYSICIAN THAT HER PLATELETS WERE 39 AND REPORTED THAT THE PATIENT WAS FEELING IN A GENERAL STATE OF BEING UNWELL. PHYSICIAN REPLIED WITH "K, THANKS."
--- NOTE | 2019-05-01 06:26 | NUR ---
SHIFT SUMMARY NEW 18G IV INSERTED INTO RIGHT FA, FLUSHED AND INFUSING. FIELD IV IN LAC REMOVED. CIWAS SHOWED STABLE ALCOHOL WITHDRAWL SYMPTOMS. PATIENTS TELE SHOWED SHE WAS IN SINUS TACHYCARDIA AT 101. PATIENT REPORTED PAIN BETWEEN 5-7 OVERNIGHT. MEDICATED WITH FENTANYL AT 1946 AND 0116 WHICH SEEMED TO SLIGHTLY HELP. BED IN LOWEST POSITION WITH BRAKES LOCKED. CALL LIGHT WITHIN REACH. REPORT GIVEN TO ONCOMING RN.
[2019-05-01 10:33] LABS: Percent Saturation 41.1 % (15.0-50.0)
--- NOTE | 2019-05-01 19:00 | NUR ---
SHIFT SUMMARY. A&OX4, INDEPENDENT IN ROOM. PT WITH POOR PO INTAKE FOR BREAKFAST AND LUNCH, PT HAD GOOD MEAL INTAKE FOR DINNER. CONTINUES WITH SEVERAL LIQUID STOOLS THIS SHIFT, PT REPORTS FREQUENCY HAS DECREASED. PT REPORTS OVERALL FEELING BETTER THIS AFTERNOON WHEN COMPARED TO THIS AM. PT RECIEVED SHOWER TODAY. PT REPORTED BACK AND ABD PAIN THAT WAS MANAGED WELL WITH CURRENT ORDERS, HEAT PAD APPLIED TO BACK. NO OTHER CHANGES OR CONCERNS.
[2019-05-02 05:02] LABS: BASOPHILS ABSOLUTE AUTO 0.02 K/mm3 (0.00-0.23); BASOPHILS PERCENT AUTO 1 % (0-2); EOSINOPHILS ABSOLUTE AUTO 0.29 K/mm3 (0.00-0.68); EOSINOPHILS PERCENT AUTO 7 % (0-6); Hematocrit 23.3 % (33.0-51.0); Hemoglobin 8.1 g/dL (11.5-16.0); Mean Corpuscular HGB 36.8 pg (26.0-34.0); Mean Corpuscular HGB Conc 34.8 g/dL (31.5-36.5); Mean Corpuscular Volume 106 fL (80-100); Mean Platelet Volume 10.6 fL (9.1-12.4); RDW Coefficient Variation 15.6 % (11.7-14.2); RDW Standard Deviation 59.6 fL (35.1-46.3); White Blood Cell Count 4.44 K/mm3 (4.00-11.30)
[2019-05-02 05:05] LABS: IMMATURE GRAN ABSOLUTE AUTO 0.01 K/mm3 (0.00-0.10); IMMATURE GRAN PERCENT AUTO 0 % (0-1); LYMPHOCYTES ABSOLUTE AUTO 1.11 K/mm3 (0.84-5.20); LYMPHOCYTES PERCENT AUTO 25 % (21-46); MONOCYTES ABSOLUTE AUTO 0.33 K/mm3 (0.16-1.47); MONOCYTES PERCENT AUTO 7 % (4-13); NEUTROPHILS ABSOLUTE AUTO 2.68 K/mm3 (1.96-9.15); NEUTROPHILS PERCENT AUTO 60 % (41-73)
[2019-05-02 05:06] LABS: Platelet Count 45 K/mm3 (150-400)
--- NOTE | 2019-05-02 05:11 | NUR ---
SHIFT SUMMARY PATIENT APPEARS AND STATES TO BE FEELING BETTER THAN PREVIOUS DAYS. PATIENT MEDICATED FOR NAUSEA ONCE AND PAIN TWICE OVER THE NIGHT. SHE IS ABLE TO TOLERATE ICE CHIPS WITH JUICE BUT STILL CANNOT TOLERATE TAKING WATER BY MOUTH. CIWAS SHOW IN THE STABLE RANGE FOR ALCOHOL WITHDRAWL. TELE SHOWS PATIENT IN SINUS RHYTHM AT 85. IV PATENT AND INFUSING WITH LR. BED IN LOWEST POSITION WITH WHEELS LOCKED. CALL LIGHT WITHIN REACH. REPORT GIVEN TO ONCOMING RN.
[2019-05-02 05:23] LABS: Albumin, Blood 2.2 g/dL (3.4-5.0); Anion Gap 8 mmol/L (6-16); Blood Urea Nitrogen 6 mg/dL (8-24); Bun/Creatinine Ratio 9.4 (12.0-20.0); CO2, Blood 23 mmol/L (21-32); Calcium, Blood 7.9 mg/dL (8.5-10.1); Chloride, Blood 110 mmol/L (98-108); Creatinine, Blood 0.64 mg/dL (0.40-1.00); Glomerular Filtration Rate >60 (60-); Glucose, Blood 90 mg/dL (70-99); Phosphorus, Blood 2.3 mg/dL (2.5-4.9); Potassium, Blood 3.1 mmol/L (3.5-5.5); Sodium, Blood 141 mmol/L (136-145)
--- NOTE | 2019-05-02 16:54 | NUR ---
ALERT. ORIENTED. MEDICATED FOR PAIN X 2 WITH GOOD RESULTS. C/O NAUSEA, BUT IS ABLE TO EAT WITHOUT VOMITING. PER PATIENT "CLEAR LIQUIDS HELP." IV PATENT. TELE ON AND SR PER TECH. WANTS TO D'C DIRECTLY TO [facility] WITH POSSIBLE D'C ON THURSDAY. BED IN LOW POSITION. ABLE TO MAKE NEEDS KNOWN. [facility]
--- NOTE | 2019-05-03 04:09 | NUR ---
SHIFT SUMMARY AOX4. LS CLEAR, DENIES SOB. NO C/O NAUSEA. PAIN RATED 5/10 IN BACK, ULTRAM GIVEN @ 2200. PT INDEPENDENT IN ROOM. CONTACT PRECAUTIONS FOR CDIFF. R WRIST IS SL. CIWA NEGATIVE. EYES STILL HAVE YELLOW TINT. PLAN IS [facility] OR [facility] ON DC, UNSURE OF WHEN THAT WILL BE. VSS ON RA.
[2019-05-03 04:52] LABS: BASOPHILS ABSOLUTE AUTO 0.03 K/mm3 (0.00-0.23); BASOPHILS PERCENT AUTO 1 % (0-2); EOSINOPHILS ABSOLUTE AUTO 0.21 K/mm3 (0.00-0.68); EOSINOPHILS PERCENT AUTO 5 % (0-6); Hematocrit 26.1 % (33.0-51.0); Hemoglobin 8.9 g/dL (11.5-16.0); Mean Corpuscular HGB 36.5 pg (26.0-34.0); Mean Corpuscular HGB Conc 34.1 g/dL (31.5-36.5); Mean Corpuscular Volume 107 fL (80-100); Mean Platelet Volume 10.2 fL (9.1-12.4); Platelet Count 51 K/mm3 (150-400); RDW Coefficient Variation 15.9 % (11.7-14.2); RDW Standard Deviation 60.6 fL (35.1-46.3); Red Blood Cell Count 2.44 M/mm3 (3.80-5.20); White Blood Cell Count 3.98 K/mm3 (4.00-11.30)
[2019-05-03 04:54] LABS: IMMATURE GRAN ABSOLUTE AUTO 0.02 K/mm3 (0.00-0.10); IMMATURE GRAN PERCENT AUTO 1 % (0-1); LYMPHOCYTES ABSOLUTE AUTO 1.29 K/mm3 (0.84-5.20); LYMPHOCYTES PERCENT AUTO 32 % (21-46); MONOCYTES PERCENT AUTO 8 % (4-13); NEUTROPHILS ABSOLUTE AUTO 2.13 K/mm3 (1.96-9.15); NEUTROPHILS PERCENT AUTO 54 % (41-73)
[2019-05-03 05:13] LABS: Albumin, Blood 2.4 g/dL (3.4-5.0); Anion Gap 6 mmol/L (6-16); Blood Urea Nitrogen 8 mg/dL (8-24); Bun/Creatinine Ratio 12.6 (12.0-20.0); CO2, Blood 25 mmol/L (21-32); Chloride, Blood 107 mmol/L (98-108); Creatinine, Blood 0.64 mg/dL (0.40-1.00); Glomerular Filtration Rate >60 (60-); Glucose, Blood 93 mg/dL (70-99); Phosphorus, Blood 3.4 mg/dL (2.5-4.9); Potassium, Blood 3.7 mmol/L (3.5-5.5); Sodium, Blood 138 mmol/L (136-145)
[2019-05-03 15:42] LABS: Albumin, Blood 2.4 g/dL (3.4-5.0); Albumin/Globulin Ratio 0.5 (0.8-1.8); Bilirubin, Direct 2.1 mg/dL (0.0-0.3); Bilirubin, Indirect 4.7 mg/dL (0.1-0.7); Bilirubin, Total 6.8 mg/dL (0.1-1.0); Globulin, Blood 4.9 g/dL (2.2-4.0); Magnesium, Blood 1.3 mg/dL (1.6-2.4); Total Protein, Blood 7.3 g/dL (6.4-8.2)
--- NOTE | 2019-05-03 17:08 | NUR ---
SHIFT SUMMARY PT INDEPENDENT IN ROOM. PT HAS BEEN ARRANGING PLACES TO STAY AND MEDICATIONS TO BE FILLED FOR AN 0830 DISCHARGE TOMORROW. CALLED TRANSLINK AND ARRANGED TRANSPORTATION TO THE [facility] SHE WAS STAYING AT SO SHE COULD MEDICAL OFFICE PROFESSIONAL INSTRUCTOR HER BELONGINGS FOR 0830 IN AM. REPORTS LOW BACK PAIN CONTINUES AND EASES ONLY WHEN PAIN MEDS GIVEN AND EFFECTIVE. SHOWER TAKEN THIS MORNING. REPORTS DIARRHEA IMPROVED.
[2019-05-03] MEDS ORDERED: FOLI1 PO (19:04)
[2019-05-03] MEDS ORDERED: B-1100 MG PO (19:05)
[2019-05-03] MEDS ORDERED: Vancocin HCl125 MG PO (19:06)
--- NOTE | 2019-05-04 05:57 | NUR ---
SHIFT SUMMARY NO ASSESSMENT CHANGES. R WRIST IS SL. CIWA (-). ULTRAM LAST @ 2362. PLAN TO DC TODAY @ 2763
--- NOTE | 2019-05-04 08:45 | NUR ---
DISCHARGE INSTRUCTIONS COMPLETED AND DISCUSSED WITH PT EXRESSING UNDERSTANDING. SCRIPTS FAXED TO [facility]. [facility] COMPLETED PRIOR TO DISCHARGING. TO [facility] BY [facility] PER HER REQUEST TO CATCH HER RIDE FROM HOSPITAL.
== END 2019-05-04 08:23 | disposition home or self-care (01) | DRG 872 ==
LOC: ER 09:29 → MEDS 09:30
PROVIDERS: Internal Medicine; Physician Assistant; ADMIT Family Medicine
DX: A41.9 Sepsis, unspecified organism (principal); A04.72 Enterocolitis due to Clostridium difficile, not specified as recurrent; F10.239 Alcohol dependence with withdrawal, unspecified; K70.30 Alcoholic cirrhosis of liver without ascites; E83.42 Hypomagnesemia; E87.6 Hypokalemia; E83.39 Other disorders of phosphorus metabolism; D69.6 Thrombocytopenia, unspecified; D63.8 Anemia in other chronic diseases classified elsewhere; K21.9 Gastro-esophageal reflux disease without esophagitis; F32.9 Major depressive disorder, single episode, unspecified; G62.9 Polyneuropathy, unspecified; I10 Essential (primary) hypertension; F43.10 Post-traumatic stress disorder, unspecified; F41.1 Generalized anxiety disorder; F17.200 Nicotine dependence, unspecified, uncomplicated; Z88.5 Allergy status to narcotic agent; Z88.8 Allergy status to other drugs, medicaments and biological substances; Z91.14 Patient's other noncompliance with medication regimen
CPT/HCPCS: 0097U; 36415; 74176; 80048; 80053; 80069; 80076; 81001; 82607; 82728; 82746; 83540; 83550; 83605; 83690; 83735; 85025; 87040; 87086; 87177; 87209; 87324; 93005; 93010; 96365; 96366; 96374; 96375; 96376; 99285-25; G0378; J2060; J2405; J2550; J3010; J3370; J7050; J7120

== ENCOUNTER 2019-05-19 17:29 | Emergency (ER) | payer OTHER ==
[~2019-05-19] VITALS: Ht 177.8 cm; Wt 84.8 kg
[~2019-05-19 17:29] MED LIST changes: +B-1100 MG PO; +FAMO20 PO; +FLUO10 PO; +FOLI1 PO; +FOLIC ACID PO; +GABA100 PO; +LACT10SY PO; +ONDA4ODT SL; +Potassium Chlo10 ME2 PO; +RIFA550T2 PO; +THERA1 EACH PO; +VANCOCIN HCL125 MG PO; +Vancocin HCl125 MG PO
== END 2019-05-19 18:16 | disposition home or self-care (01) ==
LOC: ER 17:29
PROVIDERS: Physician Assistant
DX: R19.7 Diarrhea, unspecified (principal); F17.200 Nicotine dependence, unspecified, uncomplicated; Z79.899 Other long term (current) drug therapy
CPT/HCPCS: 87324; 87493; 99282

== ENCOUNTER 2019-06-07 08:01 | Emergency (ER) | payer OTHER ==
[~2019-06-07] VITALS: Ht 177.8 cm; Wt 86.2 kg
[2019-06-07] MEDS ORDERED: MAGNESIUM250 MG PO (08:37)
[2019-06-07] MEDS ORDERED: INDERAL XL80 M1 PO (08:37)
[2019-06-07] MEDS ORDERED: LACT10SY PO (08:37)
[2019-06-07] MEDS ORDERED: HYDPAM50 (08:38)
[2019-06-07] MEDS ORDERED: Naltrexone HCl50 MG PO (08:38)
[2019-06-07 09:22] LABS: BASOPHILS ABSOLUTE AUTO 0.02 K/mm3 (0.00-0.23); BASOPHILS PERCENT AUTO 0 % (0-2); EOSINOPHILS ABSOLUTE AUTO 0.09 K/mm3 (0.00-0.68); EOSINOPHILS PERCENT AUTO 2 % (0-6); Hematocrit 34.6 % (33.0-51.0); IMMATURE GRAN ABSOLUTE AUTO 0.01 K/mm3 (0.00-0.10); IMMATURE GRAN PERCENT AUTO 0 % (0-1); LYMPHOCYTES ABSOLUTE AUTO 0.76 K/mm3 (0.84-5.20); LYMPHOCYTES PERCENT AUTO 16 % (21-46); MONOCYTES ABSOLUTE AUTO 0.33 K/mm3 (0.16-1.47); MONOCYTES PERCENT AUTO 7 % (4-13); Mean Corpuscular HGB 35.9 pg (26.0-34.0); Mean Corpuscular HGB Conc 31.8 g/dL (31.5-36.5); Mean Corpuscular Volume 113 fL (80-100); Mean Platelet Volume 10.1 fL (9.1-12.4); NEUTROPHILS ABSOLUTE AUTO 3.53 K/mm3 (1.96-9.15); NEUTROPHILS PERCENT AUTO 75 % (41-73); Platelet Count 84 K/mm3 (150-400); RDW Coefficient Variation 14.1 % (11.7-14.2); RDW Standard Deviation 59.9 fL (35.1-46.3); Red Blood Cell Count 3.06 M/mm3 (3.80-5.20); White Blood Cell Count 4.74 K/mm3 (4.00-11.30)
[2019-06-07 09:43] LABS: Alanine Aminotransfer (ALT/SGP 52 U/L (12-78); Albumin, Blood 2.9 g/dL (3.4-5.0); Albumin/Globulin Ratio 0.5 (0.8-1.8); Alk Phos 178 U/L (50-136); Anion Gap 7 mmol/L (6-16); Aspartate Aminotrans (AST/SGOT 93 U/L (12-37); Bilirubin, Total 4.9 mg/dL (0.1-1.0); Blood Urea Nitrogen 11 mg/dL (8-24); Bun/Creatinine Ratio 19.3 (12.0-20.0); CO2, Blood 24 mmol/L (21-32); Calcium, Blood 8.7 mg/dL (8.5-10.1); Chloride, Blood 107 mmol/L (98-108); Creatinine, Blood 0.57 mg/dL (0.40-1.00); Globulin, Blood 5.9 g/dL (2.2-4.0); Glomerular Filtration Rate >60 (60-); Glucose, Blood 104 mg/dL (70-99); Potassium, Blood 4.1 mmol/L (3.5-5.5); Sodium, Blood 138 mmol/L (136-145); Total Protein, Blood 8.8 g/dL (6.4-8.2)
== END 2019-06-07 11:02 | disposition home or self-care (01) ==
LOC: ER 08:01
PROVIDERS: Emergency Medicine
DX: R53.1 Weakness (principal)
CPT/HCPCS: 36415; 80053; 83735; 85025; 93005; 93010; 99284-25

== ENCOUNTER 2019-12-02 16:48 | Emergency (ER) | payer OTHER ==
[~2019-12-02] VITALS: Ht 175.3 cm; Wt 90.7 kg
[~2019-12-02 16:48] MED LIST changes: +HYDPAM50; +INDERAL XL80 M1 PO; +MAGNESIUM250 MG PO; +Naltrexone HCl50 MG PO
[2019-12-02 19:10] LABS: BASOPHILS ABSOLUTE AUTO 0.04 K/mm3 (0.00-0.23); BASOPHILS PERCENT AUTO 1 % (0-2); EOSINOPHILS ABSOLUTE AUTO 0.09 K/mm3 (0.00-0.68); EOSINOPHILS PERCENT AUTO 2 % (0-6); Hematocrit 33.5 % (33.0-51.0); Hemoglobin 11.4 g/dL (11.5-16.0); IMMATURE GRAN ABSOLUTE AUTO 0.02 K/mm3 (0.00-0.10); IMMATURE GRAN PERCENT AUTO 0 % (0-1); LYMPHOCYTES ABSOLUTE AUTO 1.21 K/mm3 (0.84-5.20); LYMPHOCYTES PERCENT AUTO 22 % (21-46); MONOCYTES ABSOLUTE AUTO 0.46 K/mm3 (0.16-1.47); MONOCYTES PERCENT AUTO 8 % (4-13); Mean Corpuscular HGB 36.8 pg (26.0-34.0); Mean Corpuscular Volume 108 fL (80-100); Mean Platelet Volume 10.8 fL (9.1-12.4); NEUTROPHILS ABSOLUTE AUTO 3.71 K/mm3 (1.96-9.15); NEUTROPHILS PERCENT AUTO 67 % (41-73); Platelet Count 59 K/mm3 (150-400); RDW Coefficient Variation 14.4 % (11.7-14.2); RDW Standard Deviation 56.9 fL (35.1-46.3); White Blood Cell Count 5.53 K/mm3 (4.00-11.30)
[2019-12-02 19:33] LABS: Alanine Aminotransfer (ALT/SGP 40 U/L (12-78); Albumin, Blood 3.1 g/dL (3.4-5.0); Albumin/Globulin Ratio 0.6 (0.8-1.8); Alk Phos 258 U/L (50-136); Anion Gap 6 mmol/L (6-16); Aspartate Aminotrans (AST/SGOT 72 U/L (12-37); Bilirubin, Total 7.1 mg/dL (0.1-1.0); Blood Urea Nitrogen 11 mg/dL (8-24); Bun/Creatinine Ratio 16.8 (12.0-20.0); CO2, Blood 22 mmol/L (21-32); Calcium, Blood 8.9 mg/dL (8.5-10.1); Chloride, Blood 109 mmol/L (98-108); Creatinine, Blood 0.66 mg/dL (0.40-1.00); Globulin, Blood 5.6 g/dL (2.2-4.0); Glomerular Filtration Rate >60 (60-); Glucose, Blood 93 mg/dL (70-99); Potassium, Blood 3.7 mmol/L (3.5-5.5); Sodium, Blood 137 mmol/L (136-145); Total Protein, Blood 8.7 g/dL (6.4-8.2)
== END 2019-12-02 21:22 | disposition home or self-care (01) ==
LOC: ER 16:48
PROVIDERS: Physician Assistant
DX: R51 Headache (principal); E72.20 Disorder of urea cycle metabolism, unspecified; K76.9 Liver disease, unspecified; Z88.5 Allergy status to narcotic agent; Z88.8 Allergy status to other drugs, medicaments and biological substances; Z87.891 Personal history of nicotine dependence
CPT/HCPCS: 36415; 70450; 80053; 82140; 85025; 96374; 96375; 99284-25; J1200; J1885; J2765; J7030

== ENCOUNTER 2020-01-08 16:14 | Emergency (ER) | payer OTHER ==
[~2020-01-08] VITALS: Ht 177.8 cm; Wt 90.7 kg
[2020-01-08 16:27] LABS: Source, Urine Clean Catch
[2020-01-08 16:42] LABS: Blood, Urine 4+ (Neg); Glucose Qualitative, Urine Neg (Neg); Ketones, Urine Neg (Neg); Leukocyte Esterase, Urine 1+ (Neg); Nitrite, Urine Neg (Neg); Protein, Urine 1+ (Neg); Urobilinogen, Urine 2+ (Normal)
[2020-01-08 16:43] LABS: BASOPHILS ABSOLUTE AUTO 0.04 K/mm3 (0.00-0.23); BASOPHILS PERCENT AUTO 1 % (0-2); EOSINOPHILS ABSOLUTE AUTO 0.06 K/mm3 (0.00-0.68); EOSINOPHILS PERCENT AUTO 1 % (0-6); Hematocrit 36.1 % (33.0-51.0); Hemoglobin 12.7 g/dL (11.5-16.0); IMMATURE GRAN ABSOLUTE AUTO 0.02 K/mm3 (0.00-0.10); IMMATURE GRAN PERCENT AUTO 0 % (0-1); LYMPHOCYTES ABSOLUTE AUTO 1.08 K/mm3 (0.84-5.20); LYMPHOCYTES PERCENT AUTO 14 % (21-46); MONOCYTES ABSOLUTE AUTO 0.61 K/mm3 (0.16-1.47); MONOCYTES PERCENT AUTO 8 % (4-13); Mean Corpuscular HGB 35.8 pg (26.0-34.0); Mean Corpuscular HGB Conc 35.2 g/dL (31.5-36.5); Mean Corpuscular Volume 102 fL (80-100); Mean Platelet Volume 9.9 fL (9.1-12.4); NEUTROPHILS PERCENT AUTO 76 % (41-73); Platelet Count 64 K/mm3 (150-400); RDW Coefficient Variation 13.6 % (11.7-14.2); RDW Standard Deviation 51.5 fL (35.1-46.3); Red Blood Cell Count 3.55 M/mm3 (3.80-5.20); White Blood Cell Count 7.61 K/mm3 (4.00-11.30)
[2020-01-08 16:53] LABS: Appearance, Urine Clear (Clear); Bilirubin, Urine 1+ (Neg); Color, Urine Amber (P-Yellow)
[2020-01-08 16:57] LABS: Bacteria Few /hpf; Red Blood Cells, Urine 0-2 /hpf (0-2); Squamous Epithelial Cells Few /hpf (Few)
[2020-01-08 17:10] LABS: Alanine Aminotransfer (ALT/SGP 43 U/L (12-78); Albumin, Blood 3.2 g/dL (3.4-5.0); Albumin/Globulin Ratio 0.6 (0.8-1.8); Alk Phos 222 U/L (50-136); Anion Gap 6 mmol/L (6-16); Aspartate Aminotrans (AST/SGOT 80 U/L (12-37); Bilirubin, Total 9.9 mg/dL (0.1-1.0); Blood Urea Nitrogen 9 mg/dL (8-24); Bun/Creatinine Ratio 15.9 (12.0-20.0); CO2, Blood 24 mmol/L (21-32); Calcium, Blood 8.9 mg/dL (8.5-10.1); Chloride, Blood 106 mmol/L (98-108); Creatinine, Blood 0.57 mg/dL (0.40-1.00); Globulin, Blood 5.8 g/dL (2.2-4.0); Glomerular Filtration Rate >60 (60-); Glucose, Blood 144 mg/dL (70-99); Potassium, Blood 3.4 mmol/L (3.5-5.5); Sodium, Blood 136 mmol/L (136-145)
[2020-01-08 18:02] LABS: International Normalized Ratio 1.45; Prothrombin Time Results 15.2 Sec (9.7-11.5)
[2020-01-08 19:01] LABS: Platelet Function Col/ADP 205 sec (56-115); Platelet Function Col/Epi >300 sec (75-165)
[2020-01-27] MEDS ORDERED: LACT10SY PO (19:02)
[2020-01-31] MEDS ORDERED: PROBIOTIC250 MG PO (10:30)
[2020-01-31] MEDS ORDERED: AMOCLA500 PO (10:32)
== END 2020-01-08 20:15 | disposition home or self-care (01) ==
LOC: ER 16:14
PROVIDERS: Emergency Medicine
DX: K74.60 Unspecified cirrhosis of liver (principal); D69.1 Qualitative platelet defects; Z88.5 Allergy status to narcotic agent; Z88.8 Allergy status to other drugs, medicaments and biological substances; Z87.891 Personal history of nicotine dependence
CPT/HCPCS: 36415; 80053; 81001; 82140; 85025; 85576; 85610; 85730; 87086; 96360; 96361; 99283-25; J7030

== ENCOUNTER → 2020-03-02 | Outpatient (CLI) | payer OTHER ==
[~2020-03-02] MED LIST changes: +AMOCLA500 PO; +PROBIOTIC250 MG PO
== END ==
LOC: LAB SHORT 08:15 → LAB 08:15
PROVIDERS: Nurse Practitioner Family
DX: Z00.00 Encounter for general adult medical examination without abnormal findings (principal)
CPT/HCPCS: 87070; 87106; 87205; G0145

== ENCOUNTER → 2020-04-05 | Outpatient (CLI) | payer MEDICARE, OTHER | LOC: LAB 08:15 → LAB SHORT 08:15 | DX: R30.0 Dysuria (principal) | CPT/HCPCS: 87077; 87086; 87186 ==

== ENCOUNTER 2020-04-25 08:09 | Emergency (ER) | payer OTHER ==
[~2020-04-25] VITALS: Ht 177.8 cm; Wt 93.0 kg
[2020-04-25 09:06] LABS: Source, Urine Clean Catch
[2020-04-25 09:22] LABS: Appearance, Urine Clear (Clear); Bilirubin, Urine Neg (Neg); Blood, Urine 1+ (Neg); Color, Urine Yellow (P-Yellow); Glucose Qualitative, Urine Neg (Neg); Ketones, Urine Neg (Neg); Leukocyte Esterase, Urine Neg (Neg); Nitrite, Urine Neg (Neg); Protein, Urine Neg (Neg); Specific Gravity, Urine 1.015 (1.003-1.022); Urobilinogen, Urine 1+ (Normal)
[2020-04-25 09:23] LABS: BASOPHILS ABSOLUTE AUTO 0.04 K/mm3 (0.00-0.23); BASOPHILS PERCENT AUTO 1 % (0-2); EOSINOPHILS PERCENT AUTO 3 % (0-6); Hematocrit 33.8 % (33.0-51.0); Hemoglobin 11.4 g/dL (11.5-16.0); IMMATURE GRAN ABSOLUTE AUTO 0.03 K/mm3 (0.00-0.10); IMMATURE GRAN PERCENT AUTO 1 % (0-1); LYMPHOCYTES ABSOLUTE AUTO 1.23 K/mm3 (0.84-5.20); LYMPHOCYTES PERCENT AUTO 20 % (21-46); MONOCYTES ABSOLUTE AUTO 0.44 K/mm3 (0.16-1.47); MONOCYTES PERCENT AUTO 7 % (4-13); Mean Corpuscular HGB 35.2 pg (26.0-34.0); Mean Corpuscular HGB Conc 33.7 g/dL (31.5-36.5); Mean Corpuscular Volume 104 fL (80-100); Mean Platelet Volume 9.9 fL (9.1-12.4); NEUTROPHILS ABSOLUTE AUTO 4.11 K/mm3 (1.96-9.15); NEUTROPHILS PERCENT AUTO 68 % (41-73); Platelet Count 72 K/mm3 (150-400); RDW Coefficient Variation 14.1 % (11.7-14.2); RDW Standard Deviation 54.4 fL (35.1-46.3); Red Blood Cell Count 3.24 M/mm3 (3.80-5.20); White Blood Cell Count 6.05 K/mm3 (4.00-11.30)
[2020-04-25 09:36] LABS: Alanine Aminotransfer (ALT/SGP 35 U/L (12-78); Albumin, Blood 2.8 g/dL (3.4-5.0); Albumin/Globulin Ratio 0.5 (0.8-1.8); Alk Phos 302 U/L (50-136); Anion Gap 7 mmol/L (6-16); Aspartate Aminotrans (AST/SGOT 59 U/L (12-37); Bilirubin, Total 6.1 mg/dL (0.1-1.0); Blood Urea Nitrogen 10 mg/dL (8-24); Bun/Creatinine Ratio 19.2 (12.0-20.0); CO2, Blood 24 mmol/L (21-32); Calcium, Blood 8.9 mg/dL (8.5-10.1); Chloride, Blood 108 mmol/L (98-108); Creatinine, Blood 0.52 mg/dL (0.40-1.00); Globulin, Blood 5.3 g/dL (2.2-4.0); Glomerular Filtration Rate >60 (60-); Glucose, Blood 104 mg/dL (70-99); Magnesium, Blood 1.8 mg/dL (1.6-2.4); Phosphorus, Blood 3.6 mg/dL (2.5-4.9); Potassium, Blood 3.7 mmol/L (3.5-5.5); Sodium, Blood 139 mmol/L (136-145); Total Protein, Blood 8.1 g/dL (6.4-8.2)
[2020-04-25 09:48] LABS: Red Blood Cells, Urine 0-2 /hpf (0-2); Squamous Epithelial Cells Mod /hpf (Few); White Blood Cells, Urine 0-2 /hpf (0-5)
[2020-04-25 09:49] LABS: Amorphous Light (0-Heavy); Bacteria Few /hpf
== END 2020-04-25 10:32 | disposition home or self-care (01) ==
LOC: ER 08:09
PROVIDERS: Physician Assistant
DX: E72.20 Disorder of urea cycle metabolism, unspecified (principal); K74.60 Unspecified cirrhosis of liver; Z79.899 Other long term (current) drug therapy; Z87.891 Personal history of nicotine dependence
CPT/HCPCS: 36415; 80053; 81001; 81025; 82140; 83690; 83735; 84100; 85025; 99283

== ENCOUNTER 2020-05-05 03:05 | Emergency (ER) | payer MEDICARE, OTHER ==
[~2020-05-05] VITALS: Ht 177.8 cm; Wt 90.7 kg
== END 2020-05-05 09:11 | disposition home or self-care (01) ==
LOC: ER 03:05
DX: K91.841 Postprocedural hemorrhage of a digestive system organ or structure following other procedure (principal); I10 Essential (primary) hypertension; Z87.891 Personal history of nicotine dependence
CPT/HCPCS: 99283

== ENCOUNTER 2021-01-01 09:51 | Emergency (ER) | payer MEDICARE, OTHER | END 2021-01-01 15:25 | disposition home or self-care (01) | LOC: ER 09:51 | DX: R10.11 Right upper quadrant pain (principal); R11.2 Nausea with vomiting, unspecified; I10 Essential (primary) hypertension; F17.210 Nicotine dependence, cigarettes, uncomplicated ==

== ENCOUNTER → 2021-02-20 | Outpatient (CLI) | payer MEDICARE, OTHER ==
[~2021-02-20] MED LIST changes: +ONDA4ODT MM
== END ==
LOC: LAB SHORT 13:56
DX: D48.5 Neoplasm of uncertain behavior of skin (principal)
CPT/HCPCS: 88342